=== PATIENT | female | born 1945 | race African-American/Black ===

== ENCOUNTER 2020-11-07 07:05 | Day surgery (SDC) | payer OTHER ==
--- NOTE | 2020-11-06 11:41 | RAD REPORT ---
EXAM DESCRIPTION: Bar Lovelace (2 Views)11/06/2020 11:35 am CLINICAL HISTORY: Preop mass removal from shoulder COMPARISON: 2017 FINDINGS: The lungs appear clear of acute infiltrate. The heart is normal size IMPRESSION: No acute abnormalities displayed
[2020-11-06 12:12] LABS: Absolute Lymphocytes (CBC) 1.9 K/uL (0.7-4.9); Basophils % 0.8 % (0-1.3); Hematocrit 35.6 % (36.0-45.0); Lymphocytes % 36.5 % (15.3-44.8); RBC Red Blood Cell Count 4.88 M/uL (3.86-4.86)
[2020-11-06 12:19] LABS: Potassium 3.9 mmol/L (3.5-5.1)
--- NOTE | 2020-11-06 12:56 | EKG ---
Test Date: 2020-11-06 Test Time: 09:53:38 Rail Technician: BRYAN MEASUREMENT RESULTS: Intervals: Rate: 62 AL: 170 QRSD: 88 QT: 408 QTc: 414 [place]: P: -12 AL: 170 QRS: 65 T: -1 INTERPRETIVE STATEMENTS: Normal sinus rhythm Abnormal QRS-T angle, consider primary T wave abnormality Abnormal ECG Compared to ECG 07/08/2016 08:13:10 T-wave abnormality now present Left ventricular hypertrophy no longer present Electronically Signed On 11-06-20 12:56:10 CDT by Kevin Woods
[2020-11-07] MEDS ORDERED: propofoL 200 MG/20 ML VIAL IV ONE (07:46)
[2020-11-07] MEDS ORDERED: MIDAZOLAM HCL 2 MG/2 ML INJ ONE (07:47)
[2020-11-07] MEDS ORDERED: FENTANYL CITR 100 MCG/2 ML ONE (07:47)
[2020-11-07] MEDS ORDERED: LIDOCAINE 2% MPF 5 ML VIAL ONE (07:47)
[2020-11-07] MEDS ORDERED: dexAMETHasone 10 MG/ML VIAL ONE (07:47)
[2020-11-07] MEDS ORDERED: NA CHLORIDE 0.9% 1,000 ML ONE (08:08)
[2020-11-07] MEDS ORDERED: CEFAZOLIN/SWI 1gm 1 GM/10 ML SYR ONE (08:09)
[2020-11-07] MEDS ORDERED: BUPIVACAINE 0.5% PF 10 ML VIAL ONE (09:31)
[2020-11-07] MEDS ORDERED: ONDANSETRON 4 MG/2 ML VIAL ONE (10:18)
--- NOTE | 2020-11-07 10:22 | P.BOP ---
Preoperative diagnosis: infected back subQ mass Postoperative diagnosis: same Primary procedure: Excisional biopsy of infected back subQ mass 3x3 cm Estimated blood loss: <10cc Specimen: mass Findings: purulent mass Anesthesia: General Complications: None Drain(s): Other Transferred to: Recovery Room Condition: Good
[2020-11-07 10:45] VITALS: O2SAT 100
[2020-11-07] MEDS ORDERED: KETOROLAC 30 MG/ML INJ ONE (10:46)
[2020-11-07 12:30] VITALS: BP 141/65; TEMP 96.7
--- NOTE | 2020-11-07 16:44 | DS ---
Date of Discharge: 11/07/2020 Diagnosis: Infected back subcutaneous mass. Procedure: Excisional biopsy of infected back subcutaneous mass. Disposition: Home. Activity: As tolerated. No heavy lifting. Plan: Follow up in my office in 1 week. Call for appointment at [phone]. Wet-to-dry dressing, nor mal saline daily. ESTHER/RADHA Voice ID: [id number] Report ID: [id number]
--- NOTE | 2020-11-07 16:44 | OP ---
Date of Procedure: 11/07/2020 Surgeon: Mario Nielsen MD Preoperative Diagnosis: Infected back subcutaneous mass. Postoperative Diagnosis: Infected back subcutaneous mass. Procedure: Excisional biopsy of infected back subcutaneous mass 3 x 3 cm with drainage of abscess. Estimated Blood Loss: Less than 10 mL. Finding: Purulent mass with abscess. Anesthesia: General plus local. Complications: None. Packing: Wet-to-dry. Indication: This is the case of a 75-year-old patient, who comes to us with purulent drainage coming from the subcutaneous mass on the back. The benefits, alternatives, and risks of excisional biopsy fully explained, which include, but not limited to infection, bleeding, damage to adjacent structures , anesthesia complication, recurrence, OK, and even . She also understands this may not relieve any symptoms. She might need more than one surgical intervention. She also understands she will re quire wound care. She signed the consent. Procedure In Detail: The patient was brought to the operating room, placed in supine position. Anes thesia was done without complication. The back area was prepped and draped in usual sterile fashion after the patient was placed in lateral decubitus position. The area of concern was previously marke d by me and the patient in the holding room. So, we made a wedge incision in that area. Incision wa s carried down to deep subcutaneous mass and deep to that, we noticed an abscess. Once we removed th e mass, we were able to access the abscess and open loculations, removed the pus. The area was irrig ated. Hemostasis was obtained. The area was packed with wet-to-dry dressing. The patient tolerated the procedure well. The patient was sent to recovery in stable condition. ESTHER/RADHA Voice ID: [id number] Report ID: [id number]
== END 2020-11-07 11:43 | disposition home or self-care (01) ==
LOC: OR 07:05
PROVIDERS: ATTEND Surgery
PROC: 0JB70ZZ Excision of Back Subcutaneous Tissue and Fascia, Open Approach (ICD-10-PCS; principal; 2020-11-07 09:45)
DX: R22.2 Localized swelling, mass and lump, trunk (principal); Z20.822 Contact with and (suspected) exposure to COVID-19
CPT/HCPCS: 93005; 85025; 80048; 36415; 82947; 88304; 71046; 11403; U0003; J2704; J2250; J3010; J0690; J7030; J2405; 88305; J1100